=== PATIENT | male | born 1985 | race Hispanic/Latino ===

== ENCOUNTER 2024-02-26 18:11 | Emergency (ER) | payer SELFPAY ==
[2024-02-26 20:03] LABS: Absolute Eosinophils 0.1 K/uL (0-0.5); Absolute Lymphocytes (CBC) 1.3 K/uL (0.7-4.9); Absolute Monocytes 0.6 K/uL (0.1-1.3); Absolute Neutrophil 10.9 K/uL (1.8-8.0); Basophils % 0.2 % (0-1.3); Hematocrit 43.7 % (39.6-49.0); MCH 30.5 pg (27.0-35.0); MCHC 34.4 g/dL (32.0-36.0); MCV 88.7 fL (80-100); MPV 8.8 fL (7.6-11.3); Monocytes % 4.9 % (3.3-12.3); Neutrophils % 83.9 % (41.7-73.7); Platelets 219 thou/uL (152-406); RBC Red Blood Cell Count 4.93 M/uL (4.33-5.43); Red Cell Distribution Width 13.1 % (12.1-15.2)
[2024-02-26] MEDS ORDERED: ONDANSETRON 4 MG/2 ML VIAL ONE ×2 (20:03→23:02)
[2024-02-26] MEDS ORDERED: MORPHINE 4 MG/ML SYR ONE (20:03)
[2024-02-26 20:12] LABS: PT Prothrombin Time 11.3 SECONDS (9.4-12.5); Protime INR 1.01
[2024-02-26 20:19] LABS: ALT/SGPT 28 U/L (16-61); AST/SGOT 18 U/L (15-37); Albumin 4.1 g/dL (3.4-5.0); Albumin/Globulin Ratio 1.1 (1.1-1.8); Alkaline Phosphatase 86 U/L (45-117); Anion Gap 9.2 mEq/L (5.0-15.0); BUN Blood Urea Nitrogen 14 mg/dL (7-18); Bicarbonate 28 mEq/L (21-32); Bilirubin Total 0.3 mg/dL (0.2-1.0); Globulin 3.9 g/dL (2.3-3.5); Glomerular Filtration Rate 104 ml/min (=/>90); Glucose Level 98 mg/dL (74-106); Magnesium 2.2 mg/dL (1.6-2.4); Potassium 3.2 mEq/L (3.5-5.1); Sodium Level 137 mEq/L (136-145)
[2024-02-26 20:21] LABS: Bilirubin Direct < 0.2 mg/dL (0-0.2); Bilirubin Indirect, Calculated 0.1 mg/dL (0.2-0.8)
--- NOTE | 2024-02-26 20:24 | RAD REPORT ---
EXAMINATION: ONE VIEW CHEST XR CLINICAL INDICATION: Male, 38 years old.CHEST PAIN TECHNIQUE: 1 View, AP supine, X-ray of the chest was performed. [id number]. COMPARISON: No prior exam. FINDINGS: Lungs and pleura: Clear lungs. No effusion. Heart and mediastinum: Normal heart size. Unremarkable mediastinal contours. Osseous structures: No acute abnormality. Tubes/lines: None Other: None. IMPRESSION: No acute intrathoracic abnormality.
[2024-02-26 20:27] LABS: Barbiturates NEGATIVE (NEGATIVE); Benzodiazepines NEGATIVE (NEGATIVE); Cocaine NEGATIVE (NEGATIVE); METHAMPHETAM NEGATIVE (NEGATIVE); Methadone NEGATIVE (NEGATIVE); Opiates NEGATIVE (NEGATIVE); Phencyclidine NEGATIVE (NEGATIVE); THC Cannibis NEGATIVE (NEGATIVE)
[2024-02-26 20:27] LABS: SARS-CoV-2 Antigen CONTROL BLUE LINE VIS/BG OK; SARS-CoV-2 Antigen Rapid Res Negative (Negative)
--- NOTE | 2024-02-26 22:33 | RAD REPORT ---
EXAM: CT CHEST, ABDOMEN AND PELVIS WITHOUT CONTRAST CLINICAL INDICATION: Male, 38 years [facility] MAIN abdominal pain;Chest pain Bed Name: IW1 TECHNIQUE: CT chest, abdomen and pelvis was performed, with IV contrast, as per department protocol. Axial, sagittal and coronal reconstructions were obtained. One or more of the following dose reduction techniques were used: Automated exposure control, adjustment of the mA and/or kV according to the patient size, and/or iterative reconstruction. Unless otherwise specified, incidental findings do not require dedicated imaging follow-up. [id number]. COMPARISON: Same-day chest x-ray FINDINGS: Chest: LOWER NECK/CHEST WALL: Visualized thyroid gland and soft tissues are normal. LUNGS AND AIRWAYS: 3 mm right upper lobe pulmonary nodule on image 22, series 201 is almost certainly benign. No acute process in lungs. PLEURA: No pleural effusion. No pneumothorax. Hemidiaphragms are normally positioned. MEDIASTINUM AND LYMPH NODES: No mediastinal mass or fluid collection. Normal size mediastinal, hilar, and axillary lymph nodes. THORACIC AORTA: Normal caliber and configuration. PULMONARY ARTERIES: Normal caliber. HEART: Unremarkable. Abdomen/Pelvis LIVER: Hepatomegaly. No focal mass. GALLBLADDER/BILE DUCTS: No biliary ductal dilatation. PANCREAS: No mass, ductal dilation, or duc-pancreatic fluid. SPLEEN: Normal size. No focal lesion. ADRENALS: Normal; no mass. KIDNEYS AND URETERS: Normal size and contour. No hydronephrosis. GASTROINTESTINAL TRACT: Stomach is non-dilated. Small bowel has normal course and caliber. No colonic wall thickening or pericolonic inflammatory changes. Normal appendix. PERITONEUM: No free fluid. LYMPH NODES: No lymphadenopathy. ABDOMINAL AORTA AND OTHER VESSELS: Normal caliber aorta and IVC. URINARY BLADDER: Normal contour. REPRODUCTIVE ORGANS: No pathologic process. MUSCULOSKELETAL: No acute or suspicious osseous abnormality. ADDITIONAL FINDINGS: None IMPRESSION: No acute or significant abnormalities in the chest, abdomen, or pelvis.
[2024-02-26] MEDS ORDERED: POTASSIUM 25 MEQ EFFERV TAB ONE (22:52)
[2024-02-26] MEDS ORDERED: LIDOCAINE VISCOUS 2% 10ML ORAL SOLN ONE (23:03)
[2024-02-26] MEDS ORDERED: MAGNES/ALUMIN/SIMET 30ML UCUP ONE (23:03)
--- NOTE | 2024-02-27 00:06 | EDPHYS ---
Physician Documentation [facility] Name: Sean Pascual Age: 38 yrs Sex: Male : 1985 Arrival Date: 02/26/2024 Time: 18:11 Bed 2 Private MD: ED Physician Christiano Robertson HPI: 02/25 18:30 This 38 yrs old Male presents to ER via Ambulatory with complaints of Chest cp Pain, Headache, Nausea. 18:30 The patient or guardian reports chest pain that is located primarily in the anterior cp chest wall. 18:30 The pain does not radiate. Associated signs and symptoms: Pertinent positives: cp abdominal pain, nausea, headache, Pertinent negatives: cough, diaphoresis, lower extremity pain, lower extremity swelling, shortness of breath, syncope, vomiting. Historical: - Allergies: 18:26 No Known Allergies; tl4 - Home Meds: 18:26 None [Active]; tl4 - PMHx: 18:26 None; tl4 - PSHx: 18:26 None; tl4 - Immunization history:: Adult Immunizations unknown. - Infectious Disease History:: Denies. - Social history:: Smoking status: Patient denies any tobacco usage or history of. ROS: 18:35 Cardiovascular: Positive for chest pain, Negative for edema, palpitations, cp 18:35 Abdomen/GI: Positive for abdominal pain, nausea, Negative for vomiting, diarrhea, cp constipation, 18:35 Neuro: Positive for headache, Negative for altered mental status, numbness, syncope, near syncope, tingling, weakness, 18:35 Eyes: Negative for injury, pain, redness, and discharge, cp 18:35 Constitutional: Negative for body aches, chills, fever, poor PO intake, 18:35 ENT: Positive for sore throat, Negative for drainage from ear(s), ear pain, difficulty swallowing, difficulty handling secretions, 18:35 Respiratory: Negative for cough, wheezing, cp 18:35 Back: Negative for pain at rest, pain with movement, 18:35 All other systems are negative, Exam: 18:40 Constitutional: The patient appears in no acute distress, alert, awake, cp non-diaphoretic, non-toxic, well developed, well nourished, uncomfortable, 18:40 Head/Face: Normocephalic, atraumatic. cp 18:40 Eyes: Periorbital structures: appear normal, Conjunctiva: normal, no exudate, no injection, Sclera: no appreciated abnormality, Lids and lashes: appear normal, bilaterally, 18:40 ENT: External ear(s): are unremarkable, Nose: is normal, Mouth: Lips: moist, Oral mucosa: pink and intact, moist, Posterior pharynx: Airway: no evidence of obstruction, patent, 18:40 Neck: ROM/movement: is normal, is supple, without pain, no range of motions limitations, 18:40 Chest/axilla: Inspection: normal, Palpation: is normal, no crepitus, no tenderness, 18:40 Cardiovascular: Rate: bradycardic, Rhythm: regular, Edema: is not appreciated, JVD: is not appreciated, 18:40 Respiratory: the patient does not display signs of respiratory distress, Respirations: normal, no use of accessory muscles, no retractions, labored breathing, is not present, Breath sounds: are clear throughout, no decreased breath sounds, no stridor, no wheezing, 18:40 Abdomen/GI: Inspection: abdomen appears normal, Bowel sounds: active, all quadrants, Palpation: soft, in all quadrants, moderate abdominal tenderness, in the epigastric area, right upper quadrant and left upper quadrant, rebound tenderness, is not appreciated, involuntary guarding, is not appreciated, 18:40 Back: pain, is absent, ROM is normal, 18:40 Neuro: Orientation: to person, place \T\ time. Mentation: is normal, Cerebellar function: is grossly normal, Motor: moves all fours, strength is normal, Sensation: no obvious gross deficits, 20:05 ECG was reviewed by the Attending Physician. cp Vital Signs: 18:24 BP 173 / 103; Pulse 58; Resp 18; Temp 98.9(O); Pulse Ox 100% on R/A; Weight 77.11 kg; tl4 23:00 BP 132 / 95; Pulse 71; Resp 16; Pulse Ox 99% ; jj7 23:42 BP 139 / 91; Pulse 71; Resp 17; Temp 98.9; Pulse Ox 99% ; Pain 2/10; bm8 11 00:17 BP 140 / 79; Pulse 71; Resp 21; Temp 97.6; Pulse Ox 98% ; jj7 23:42 Pain Scale: Adult bm8 [place] Coma Score: 02/25 23:42 Eye Response: spontaneous(4). Motor Response: obeys commands(6). Verbal Response: bm8 oriented(5). Total: 15. MDM: 18:30 Medical Screening Exam initiated cp 19:00 Differential diagnosis: acute myocardial infarction, cholecystitis, Cholelithiasis cp esophagitis, gastritis, gastroesophageal reflux disease (GERD), pancreatitis, peptic ulcer disease, pericarditis, pleurisy, pneumonia, pneumothorax, stable angina, thoracic aortic disection, unstable angina. 02/26 00:05 Data reviewed: vital signs, nurses notes, lab test result(s), EKG, radiologic studies, cp CT scan, plain films, and as a result, I will discharge patient. 00:05 Consideration of Admission/Observation Escalation of care including cp admission/observation considered. I considered the following discharge prescriptions or medication management in the emergency department Medications were administered in the Emergency Department. See MAR. Independent interpretation of the following test(s) in the Emergency Department EKG: See my EKG interpretation above. Counseling: I had a detailed discussion with the patient and/or guardian regarding the historical points, exam findings, and any diagnostic results supporting the discharge/admit diagnosis, lab results, radiology results, the need for outpatient follow up, a manager bakery, a family practitioner, to return to the emergency department if symptoms worsen or persist or if there are any questions or concerns that arise at home. Response to treatment: the patient's symptoms have markedly improved after treatment, and as a result, I will discharge patient. 02/25 18:29 Order name: SARS RAPID; Complete Time: 21:56 cp 02/25 18:29 Order name: Influenza Screen (a \T\ B); Complete Time: 21:56 cp 02/25 18:29 Order name: Basic Metabolic Panel; Complete Time: 21:56 cp 02/25 18:29 Order name: CBC with Diff; Complete Time: 21:56 cp 02/25 18:29 Order name: LFT's; Complete Time: 21:56 cp 02/25 18:29 Order name: Magnesium; Complete Time: 21:56 cp 02/25 18:29 Order name: PT-INR; Complete Time: 21:56 cp 02/25 18:29 Order name: Troponin HS; Complete Time: 21:56 02/25 18:29 Order name: UDS; Complete Time: 21:56 cp 02/25 22:46 Order name: Troponin High Sensitivity; Complete Time: 00:02 cp 02/25 18:29 Order name: XRAY Chest (1 view); Complete Time: 21:56 cp 02/25 21:57 Order name: CT Chest, Abdomen, Pelvis - W/Contrast; Complete Time: 22:45 cp 02/25 18:29 Order name: EKG; Complete Time: 18:30 cp 02/25 18:29 Order name: Cardiac monitoring; Complete Time: 23:11 cp 02/25 18:29 Order name: EKG - Nurse/Tech; Complete Time: 20:01 cp 02/25 18:29 Order name: IV Saline Lock; Complete Time: 19:55 cp 02/25 18:29 Order name: Labs collected and sent; Complete Time: 19:55 cp 02/25 18:29 Order name: O2 Per Protocol; Complete Time: 20:14 cp 02/25 18:29 Order name: O2 Sat Monitoring; Complete Time: 20:14 cp EC/09 20:05 Rate is 56 beats/min. Rhythm is regular. RI interval is prolonged at 132 msec. QRS cp interval is prolonged at 112 msec. QT interval is normal. T waves are Inverted in leads III, aVF, aVR, V5, V6. Interpreted by me. Reviewed by me. Administered Medications: 20:08 Not Given (Patient Refused): ondansetron 4 mg IVP once; over 2 minutes cg 20:08 Not Given (Patient Refused): morphineor iv 4 mg IVP once over 4 mins cg 22:55 Drug: Potassium PO Effervescent Tablet 50 mEq PO once; dissolve in 4 ounces of water or bm8 juice Route: PO; 02/26 00:02 Follow up: Response: No adverse reaction 8 02/25 23:11 Drug: Ondansetron IVP 4 mg IVP once; over 2 minutes Route: IVP; Site: left antecubital; jj7 02/26 00:02 Follow up: Response: No adverse reaction 8 02/25 23:11 Drug: GI Cocktail without - (Maalox PO 30 ml, Lidocaine Mucous Membrane 2 % 15 jj7 ml) PO once Route: PO; 02/26 00:02 Follow up: Response: No adverse reaction bm8 Disposition Summary: 02/27/24 00:05 Discharge Ordered Notes: Location: Home cp Problem: new cp Symptoms: have improved cp Condition: Stable cp Diagnosis - Chest pain, unspecified cp - Abdominal pain, unspecified cp Followup: cp - With: Abimael Schmitz MD - When: 2 - 3 days - Reason: chest pain Discharge Instructions: - Discharge Summary Sheet cp - Abdominal Pain, Adult cp - Nonspecific Chest Pain, Adult cp - Aspirin and Your Heart cp Forms: - Medication Reconciliation Form cp - Antibiotic Education cp - Prescription Opioid Use cp - Patient Portal Instructions cp - Leadership Thank You Letter cp Prescriptions: - Pepcid 20 mg Oral Tablet - take 1 tablet ORAL route every 12 hours for 10 days; 20 tablet; Refills: 0, cp Product Selection Permitted - Zofran 4 mg Oral Tablet - take 1 tablet ORAL route every 12 hours As needed; 20 tablet; Refills: 0, cp Product Selection Permitted Addendum: 02/28/2024 20:49 Co-signature as Attending Physician, Christiano Robertson MD I reviewed the patient's care r t provided by the Advanced Practice Provider and agree with the diagnosis and treatment plan. Signatures: Dispatcher [employer] EDMS Keith Boggs PA PA cp John Bush, RN RN jj7 Christiano Robertson MD MD rt Juan Hudson RN RN tl4 Peter Reddy, RN RN bm8 Joellen Garcia RN cg Corrections: (The following items were deleted from the chart) 02/25 18:30 18:30 SARS-COV-2 Antigen Rapid+I.LAB.BRZ ordered. EDMS EDMS 18:30 18:30 Influenza Screen (A \T\ B)+BA.LAB.BRZ ordered. EDMS EDMS 18:30 18:30 BASIC METABOLIC PANEL+C.LAB.BRZ ordered. EDMS EDMS 18:30 18:30 CBC+H.LAB.BRZ ordered. EDMS EDMS 18:30 18:30 HEPATIC FUNCTION+C.LAB.BRZ ordered. EDMS EDMS 18:30 18:30 MAGNESIUM+C.LAB.BRZ ordered. EDMS EDMS 18:30 18:30 PROTIME (+INR)+COAG.LAB.BRZ ordered. EDMS EDMS 18:30 18:30 Troponin High Sensitivity+C.LAB.BRZ ordered. EDMS EDMS 18:30 18:30 URINE DRUG SCREEN+UC.LAB.BRZ ordered. EDMS EDMS
--- NOTE | 2024-02-27 00:06 | ER ---
Nurse's Notes [facility] Name: Sean Pascual Age: 38 yrs Sex: Male : 1985 Arrival Date: 02/26/2024 Time: 18:11 Bed 2 Private MD: Diagnosis: Chest pain, unspecified;Abdominal pain, unspecified Presentation: 02/25 18:24 Chief complaint: Patient states: Pt c/o abdominal pain, headache, sore throat and chest tl4 pain x 30 minutes. Coronavirus screen: headache, sore throat. Ebola Screen: No symptoms or risks identified at this time. Initial Sepsis Screen: Does the patient meet any 2 criteria? No. Patient's initial sepsis screen is negative. Does the patient have a suspected source of infection? No. Patient's initial sepsis screen is negative. Risk Assessment: Do you want to hurt yourself or someone else? Patient reports no desire to harm self or others. Onset of symptoms was February 26, 2024 at 18:00. 18:24 Method Of Arrival: Ambulatory tl4 18:24 Acuity: STERLING 3 tl4 Triage Assessment: 18:27 General: Appears in no apparent distress. Behavior is calm, cooperative. Pain: tl4 Complains of pain in scalp and chest. EENT: Reports pain when swallowing. Neuro: Level of Consciousness is awake, alert, obeys commands, Oriented to person, place, time, situation. Cardiovascular: Reports chest pain, Denies diaphoresis, fatigue, lightheadedness, palpitations, shortness of breath, syncope, vomiting, Capillary refill < 3 seconds Patient's skin is warm and dry. Respiratory: Airway is patent Respiratory effort is even, unlabored, Respiratory pattern is regular, symmetrical. GI: Reports nausea. : No signs and/or symptoms were reported regarding the genitourinary system. Derm: No signs and/or symptoms reported regarding the dermatologic system. Musculoskeletal: No signs and/or symptoms reported regarding the musculoskeletal system. Historical: - Allergies: 18:26 No Known Allergies; tl4 - Home Meds: 18:26 None [Active]; tl4 - PMHx: 18:26 None; tl4 - PSHx: 18:26 None; tl4 - Immunization history:: Adult Immunizations unknown. - Infectious Disease History:: Denies. - Social history:: Smoking status: Patient denies any tobacco usage or history of. Screenin:00 [facility] ED Fall Risk Assessment (Adult) History of falling in the last 3 months, jj7 including since admission No falls in past 3 months (0 pts) Confusion or Disorientation No (0 pts) Intoxicated or Sedated No (0 pts) Impaired Gait No (0 pts) Mobility Assist Device Used No (0 pt) Altered Elimination No (0 pt) Score/Fall Risk Level 0 - 2 = Low Risk Oriented to surroundings, Maintained a safe environment, Educated pt \T\ family on fall prevention, incl call for assistance when getting out of bed. Abuse screen: Denies threats or abuse. Nutritional screening: No deficits noted. Tuberculosis screening: No symptoms or risk factors identified. Assessment: 23:00 General: Appears in no apparent distress. comfortable, Behavior is calm, cooperative, jj7 appropriate for age. Pain: Complains of pain in anterior aspect of left upper chest and left breast Pain does not radiate. Cardiovascular: Reports chest pain. 23:00 Pain: Pain began 30 MIN FINAL [employer] INSPECT[employer]. jj7 23:00 Reassessment: ASSUMED CARE OF PT. jj7 23:42 Reassessment: Patient appears in no apparent distress at this time. Patient and/or bm8 family updated on plan of care and expected duration. Pain level reassessed. Patient is alert, oriented x 3, equal unlabored respirations, skin warm/dry/pink. General: Appears in no apparent distress. comfortable, Behavior is calm, cooperative, appropriate for age. Pain: Complains of pain in chest Pain currently is 2 out of 10 on a pain scale. Neuro: No deficits noted. Level of Consciousness is awake, alert, obeys commands, Oriented to person, place, time, situation, Appropriate for age. Cardiovascular: Reports chest pain, Heart tones S1 S2 present Capillary refill < 3 seconds in bilateral fingers Patient's skin is warm and dry. Rhythm is sinus rhythm. Respiratory: No deficits noted. Airway is patent Trachea midline Respiratory effort is even, unlabored, Respiratory pattern is regular, symmetrical, Breath sounds are clear bilaterally. GI: No deficits noted. No signs and/or symptoms were reported involving the gastrointestinal system. : No deficits noted. No signs and/or symptoms were reported regarding the genitourinary system. EENT: No deficits noted. No signs and/or symptoms were reported regarding the EENT system. Derm: No deficits noted. No signs and/or symptoms reported regarding the dermatologic system. Musculoskeletal: No deficits noted. No signs and/or symptoms reported regarding the musculoskeletal system. Vital Signs: 18:24 BP 173 / 103; Pulse 58; Resp 18; Temp 98.9(O); Pulse Ox 100% on R/A; Weight 77.11 kg; tl4 23:00 BP 132 / 95; Pulse 71; Resp 16; Pulse Ox 99% ; jj7 23:42 BP 139 / 91; Pulse 71; Resp 17; Temp 98.9; Pulse Ox 99% ; Pain 2/10; bm8 02/26 00:17 BP 140 / 79; Pulse 71; Resp 21; Temp 97.6; Pulse Ox 98% ; jj7 23:42 Pain Scale: Adult bm8 [place] Coma Score: 02/25 23:42 Eye Response: spontaneous(4). Motor Response: obeys commands(6). Verbal Response: bm8 oriented(5). Total: 15. ED Course: 18:17 Patient arrived in ED. mg5 18:18 Keith Boggs PA is PHCP. cp 18:19 Christiano Robertson MD is Attending Physician. cp 18:26 Triage completed. tl4 18:28 Arm band placed on left wrist. tl4 19:55 Basic Metabolic Panel Sent. rv1 19:55 CBC with Diff Sent. rv1 19:55 LFT's Sent. rv1 19:55 Magnesium Sent. rv1 19:55 PT-INR Sent. rv1 19:55 Troponin HS Sent. rv1 19:55 Influenza Screen (a \T\ B) Sent. rv1 19:55 SARS RAPID Sent. rv1 19:55 Inserted saline lock: 20 gauge in left antecubital area, using aseptic technique. Blood rv1 collected. Flushed with 10 mL NS. 20:15 XRAY Chest (1 view) In Process Unspecified. EDMS 21:02 EKG done, by phone technician. reviewed by Christiano Robertson MD. oh1 22:24 CT Chest, Abdomen, Pelvis - W/Contrast In Process Unspecified. EDMS 22:49 Peter Reddy, RN is Primary Nurse. bm8 23:00 Patient has correct armband on for positive identification. Placed in gown. Bed in low jj7 position. Call light in reach. Side rails up X2. Adult w/ patient. Provided Education on: use of call armenta. Client placed on continuous cardiac and pulse oximetry monitoring. NIBP monitoring applied. athletic monitor on. Pulse ox on. Warm blanket given. 23:00 No provider procedures requiring assistance completed. Patient maintains SpO2 jj7 saturation greater than 95% on room air. 02/26 00:04 Abimael Schmitz MD is Referral Physician. cp 00:17 IV discontinued, intact, bleeding controlled, No redness/swelling at site. Pressure jj7 dressing applied. Administered Medications: 02/25 20:08 Not Given (Patient Refused): ondansetron 4 mg IVP once; over 2 minutes cg 20:08 Not Given (Patient Refused): morphineor iv 4 mg IVP once over 4 mins cg 22:55 Drug: Potassium PO Effervescent Tablet 50 mEq PO once; dissolve in 4 ounces of water or bm8 juice Route: PO; 02/26 00:02 Follow up: Response: No adverse reaction bm8 02/25 23:11 Drug: Ondansetron IVP 4 mg IVP once; over 2 minutes Route: IVP; Site: left antecubital; jj7 02/26 00:02 Follow up: Response: No adverse reaction bm8 02/25 23:11 Drug: GI Cocktail without - (Maalox PO 30 ml, Lidocaine Mucous Membrane 2 % 15 jj7 ml) PO once Route: PO; 02/26 00:02 Follow up: Response: No adverse reaction bm8 Medication: 02/25 23:00 VIS not applicable for this client. jj7 Outcome: 02/26 00:05 Discharge ordered by . cp 00:17 Discharged to home ambulatory, with family, jj7 00:17 Condition: improved 00:17 Discharge instructions given to patient, family, Instructed on discharge instructions, follow up and referral plans. medication usage, Demonstrated understanding of instructions, follow-up care, medications, Prescriptions given X 2, 00:19 Patient left the ED. jj7 Signatures: Dispatcher [employer] EDMS Keith Boggs PA PA cp Johnson, Juwairiyah, RN RN jj7 Irma Quintanilla rv1 Abril Rangel mg5 Juan Hudson RN RN tl4 Peter Reddy RN RN bm8 Lorie Akers oh1 Joellen Garcia RN cg Corrections: (The following items were deleted from the chart) 02/25 23:22 23:21 Pain: Pain began 2 hours ago. jj7 jj7
--- NOTE | 2024-02-28 12:07 | EKG ---
Test Date: 2024-02-26 Test Time: 19:57:40 [facility] Physician: SIMEON MEASUREMENT RESULTS: Intervals: Rate: 56 PA: 132 QRSD: 112 QT: 412 QTc: 397 [place]: P: 60 PA: 132 QRS: 58 T: -31 INTERPRETIVE STATEMENTS: Sinus bradycardia T wave abnormality, consider anterolateral ischemia Abnormal ECG No previous ECG available for comparison Electronically Signed On 02-28-24 12:05:59 [employer] by Austin Obregon
== END 2024-02-27 00:19 | disposition home or self-care (01) ==
LOC: ER 18:11
DX: R07.9 Chest pain, unspecified (principal); R10.84 Generalized abdominal pain; R51.9 Headache, unspecified
CPT/HCPCS: 36415; 71045; 71260; 74177; 80048; 80076; 80307; 83735; 84484; 85025; 85610; 87804; 87811; 93005; 96374; 99285; J2405; Q9967